=== PATIENT | male | born 1995 | race Caucasian/White ===

== ENCOUNTER 2019-03-24 08:00 | Outpatient (CLI) | payer MEDICAID ==
[2019-03-25 00:15] LABS: TRICHOMONAS VAGINALIS DNA NEGATIVE (NEGATIVE)
[2019-03-25 12:58] LABS: HEPATITIS C ANTIBODY NON-REACTIVE (NON-REACTIVE)
[2019-03-25 13:11] LABS: HIV AG/AB 4TH GEN NON-REACTIVE (NON-REACTIVE)
[2019-03-26 11:26] LABS: HSV 1 IGG TYPE SPECIFIC AB <0.90 index; HSV 2 IGG TYPE SPECIFIC AB <0.90 index
== END 2019-03-24 23:59 | disposition home or self-care (01) ==
LOC: LAB.S 08:00
PROVIDERS: ATTEND Nurse Practitioner Family
DX: Z72.51 High risk heterosexual behavior (principal)
CPT/HCPCS: 36415; 81599; 86592; 86695; 86696; 86803; 87389; 87491; 87591; 87661

== ENCOUNTER 2019-06-02 19:56 | Emergency (ER) | payer MEDICAID ==
[2019-06-02 20:05] VITALS: BP 127/65
[2019-06-02] MEDS ORDERED: cephALEXin 250 MG CAPSULE PO STA (20:30)
[2019-06-02] MEDS ORDERED: TERBINAFINE 250 MG TABLET PO STA (20:30)
--- NOTE | 2019-06-02 20:33 | ED Physician Documentation ---
PD HPI SKIN - Stated complaint Stated Complaint: RT ARM wound - Chief complaint Chief Complaint: Wound - History obtained from History obtained from: Patient - History of Present Illness Timing - onset: Other (After swimming in [place] he developed itchy lesions on the whole body but mostly on the anterior right forearm that have been persistent.) Review of Systems Constitutional: reports: Reviewed and negative Cardiac: reports: Reviewed and negative Respiratory: reports: Reviewed and negative PD PAST MEDICAL HISTORY - Past Medical History Past Medical History: No - Past Surgical History Past Surgical History: Yes Ortho: Other - Present Medications Home Medications: Ambulatory Orders Medication Instructions Recorded Confirmed Cephalexin [Keflex] 500 mg PO Q6H #28 capsule 06/02/19 Terbinafine HCl 250 mg PO DAILY #14 tablet 06/02/19 - Allergies Allergies/Adverse Reactions: Allergies Allergy/AdvReac Type Severity Reaction Status Date / Time amoxicillin Allergy Unknown Verified 06/02/19 20:06 - Social History Does the pt smoke?: No Smoking Status: Never smoker Does the pt drink ETOH?: No Does the pt have substance abuse?: No - Immunizations Immunizations are current?: Yes - POLST Patient has POLST: No PD ED PE NORMAL - Vitals Vital signs reviewed: Yes - General General: Alert and oriented X 3, No acute distress - Derm Derm: Other (He has several areas of what appear to be pretty classic tinea corporis with scalloped edges and central clearing on the anterior right forearm and bicep, and a few on the medial forearm which are more superinfected and a little impetiginous.) - Neuro Neuro: Alert and oriented X 3, Normal speech Results - Vitals Vitals: Vital Signs - 24 hr 06/02/19 20:00 Temperature 36.5 C Heart Rate 63 Respiratory 16 Rate Blood Pressure 127/65 O2 Saturation 100 Oxygen O2 Source Room air Departure - Departure Disposition: 01 Home, Self Care Clinical Impression: Tinea corporis, Impetigo Condition: Good Record reviewed to determine appropriate education?: Yes Instructions: ED Ringworm Infec Fungal Follow-Up: [facility] [Provider Group] - Within 1 week Prescriptions: Cephalexin [Keflex] 500 mg PO Q6H #28 capsule Terbinafine HCl 250 mg PO DAILY #14 tablet Forms: Activity restrictions
== END 2019-06-02 20:50 | disposition home or self-care (01) ==
LOC: ED 19:56
DX: B35.4 Tinea corporis (principal); L01.00 Impetigo, unspecified
CPT/HCPCS: 99282; 99283; A9270